=== PATIENT | female | born 1940 | race Caucasian/White ===

== ENCOUNTER → 2023-08-17 08:25 | Outpatient (REF) | payer MEDICARE, OTHER, SELFPAY ==
[2023-08-17 09:54] LABS: TSH Reflex To Free T4 3.79 uIU/ml (0.47-4.68)
== END ==
LOC: REG 08:25
PROVIDERS: ATTENDING PHYSICIAN Physician Assistant Medical; FAMILY PHYSICIAN Family Medicine
DX: E04.9 Nontoxic goiter, unspecified (principal); E89.0 Postprocedural hypothyroidism
CPT/HCPCS: 36415; 84443

== ENCOUNTER → 2023-10-24 08:53 | Outpatient (REF) | payer MEDICARE, OTHER, SELFPAY ==
[2023-10-24 10:37] LABS: % Basophils 0.9 % (0-2); % Immature Granulocytes 0.3 % (0-0.5); % Lymphocytes 37.9 % (20.5-51.1); % Monocytes 6.2 % (1.7-9.3); % Neutrophils 50.7 % (42.2-75.2); Absolute Basophils 0.1 10^3/uL (0-0.2); Absolute Eosinophils 0.2 10^3/uL (0-0.7); Absolute Lymphocytes 2.2 10^3/uL (1.2-3.4); Absolute Monocytes 0.4 10^3/uL (0.1-0.6); Absolute Neutrophils 2.9 10^3/uL (1.4-6.5); Hematocrit 40.8 % (37.0-47.0); Hemoglobin 13.2 g/dL (12.0-16.0); Mean Corp Hgb Conc. 32.4 g/dL (33.0-37.0); Mean Corpuscular Hgb 31.1 pg (27.0-31.0); Mean Platelet Volume 11.3 fL (7.4-10.4); Nucleated Red Blood Cells % 0 %; Platelet Count 185 10^3/uL (130-400); Red Blood Cell Count 4.25 10^6/uL (4.20-5.40); Red Cell Dist. Width 13.8 % (11.5-14.5); White Blood Cell Count 5.8 10^3/uL (4.8-10.8)
[2023-10-24 10:47] LABS: ALT (SGPT) 20 U/L (0-35); AST (SGOT) 38 U/L (14-36); Albumin 4.2 g/dl (3.5-5.0); Alkaline Phosphatase 51 U/L (38-126); Blood Urea Nitrogen 21 mg/dl (7-17); Calcium 9.5 mg/dl (8.4-10.2); Carbon Dioxide 26 mmol/L (22-30); Chloride 106 mmol/L (98-107); Glucose 102 mg/dl (70-99); Potassium 3.9 mmol/L (3.5-5.1); Sodium 139 mmol/L (135-145); Total Bilirubin 0.5 mg/dl (0.2-1.3); eGFR 41.31
== END ==
LOC: REG 08:53
PROVIDERS: ATTENDING PHYSICIAN Otolaryngology; FAMILY PHYSICIAN Family Medicine
DX: C73 Malignant neoplasm of thyroid gland (principal); Z01.818 Encounter for other preprocedural examination
CPT/HCPCS: 36415; 80053; 85025

== ENCOUNTER → 2023-12-11 07:43 | Outpatient (REF) | payer MEDICARE, OTHER, SELFPAY ==
[2023-12-11 08:58] LABS: Calcium 9.5 mg/dl (8.4-10.2)
[2023-12-11 09:26] LABS: TSH Reflex To Free T4 0.12 uIU/ml (0.47-4.68)
[2023-12-11 09:56] LABS: Free T4 1.46 ng/dl (0.78-2.19)
== END ==
LOC: REG 07:43
PROVIDERS: ATTENDING PHYSICIAN Physician Assistant Medical; FAMILY PHYSICIAN Family Medicine
DX: E89.0 Postprocedural hypothyroidism (principal); C73 Malignant neoplasm of thyroid gland; E03.9 Hypothyroidism, unspecified
CPT/HCPCS: 36415; 82310; 84439; 84443

== ENCOUNTER → 2024-03-26 13:38 | Outpatient (REF) | payer MEDICARE, OTHER, SELFPAY | LOC: RCS 13:38 | PROVIDERS: ATTENDING PHYSICIAN Internal Medicine; FAMILY PHYSICIAN Family Medicine | DX: I25.10 Atherosclerotic heart disease of native coronary artery without angina pectoris (principal); Z95.1 Presence of aortocoronary bypass graft; Z95.2 Presence of prosthetic heart valve; I21.3 ST elevation (STEMI) myocardial infarction of unspecified site; I50.32 Chronic diastolic (congestive) heart failure | CPT/HCPCS: 93306 ==

== ENCOUNTER 2024-08-13 07:48 | Inpatient (IN) | payer MEDICARE, OTHER, SELFPAY ==
[2024-07-31 13:50] VITALS: BMI 28.0
[2024-07-31 14:07] LABS: Hematocrit 42.9 % (37.0-47.0); Hemoglobin 13.9 g/dL (12.0-16.0); Mean Corp Hgb Conc. 32.4 g/dL (33.0-37.0); Mean Corpuscular Hgb 30.8 pg (27.0-31.0); Mean Corpuscular Volume 94.9 fL (81.0-99.0); Mean Platelet Volume 11.5 fL (7.4-10.4); Platelet Count 159 10^3/uL (130-400); Red Blood Cell Count 4.52 10^6/uL (4.20-5.40); Red Cell Dist. Width 13.4 % (11.5-14.5); White Blood Cell Count 7.2 10^3/uL (4.8-10.8)
[2024-07-31 14:36] LABS: Glycohemoglobin (HgbA1c) 6.2 % (4.0-5.6)
[2024-07-31 15:00] LABS: ALT (SGPT) 28 U/L (0-35); AST (SGOT) 43 U/L (14-36); Albumin 4.6 g/dl (3.5-5.0); Alkaline Phosphatase 53 U/L (38-126); Blood Urea Nitrogen 23 mg/dl (7-17); Calcium 9.8 mg/dl (8.4-10.2); Carbon Dioxide 24 mmol/L (22-30); Chloride 103 mmol/L (98-107); Estimated Creatinine Clearance 29 ml/min; Glucose 100 mg/dl (70-99); Potassium 4.6 mmol/L (3.5-5.1); Sodium 139 mmol/L (135-145); Total Protein 7.5 g/dl (6.3-8.2); eGFR 37.56
[2024-08-07 13:16] VITALS: BMI 28.0
[2024-08-13] VITALS (13 sets, daily range): BP systolic 94–121; BP diastolic 55–73; PULSE 74–77; O2SAT 94; BMI 28.0
[2024-08-13] MEDS: TYLENOL 650 MG PO ×3 (08:31→20:16)
[2024-08-13] MEDS: NORMOSOL-R/PLASMALYTE-A 1000 IV ×2 (08:31→13:41)
[2024-08-13] MEDS: CELEBREX 200 MG PO (08:31)
--- NOTE | 2024-08-13 11:22 | W.PN.UPDATE ---
Update Note
Progress Note Update
L TKA 08/13/24
DVT ppx ASA
PAST MEDICAL HISTORY:
1. Osteoarthritis.
2. Obesity, BMI 29.63.
3. PVC's.
4. Hypertension.
5. Hyperlipidemia.
6. CAD, severe , s/p CABG x3, QUIROGA-LAD, SVG-D3 OM3, AVR
bovine 11/2017.
7. Ischemic cardiomyopathy, HFimpEF 55% by echo 03/2024.
8. Mitral regurgitation, [id number].
9. Mixed restrictive and obstructive pulmonary disease.
10. Remote tobacco abuse.
11. Hypothyroidism.
12. History of thyroid cancer.
13. Balance and gait disturbance with neuropathy.
14. CKD 3.
15. Venous insufficiency.
--- NOTE | 2024-08-13 11:34 | W.DS.TRANS ---
DC Summary - [employer]
-
Discharge Instructions:
Sleep Apnea Risk Low
Discharge Diagnosis/Procedures L TKA 08/13/24
Diet As tolerated
Activity With Walker
Driving Restrictions No driving
Bathing Restrictions OK to Shower
Other Services PT
Instructions:
Stand-Alone Forms: Total Hip/Knee Replacement D/C
Changes to Home Medications: Yes
Discharge Medications:
DC Medications w/original date entered in [facility]
aspirin 81 mg tablet,delayed release 81 mg PO DAILY 12/10/17
furosemide 40 mg tablet 40 mg PO DAILY ##30 12/10/17
potassium chloride 20 mEq tablet,extended release(part/cryst) (Klor-Con M) 20 meq PO DAILY ##30 12/10/17
amoxicillin 500 mg tablet 2,000 mg PO PRN PRN Pre Dental Procedure 07/29/24
coQ10 (ubiquinol) 100 mg capsule 300 mg PO DAILY 07/29/24
ezetimibe 10 mg tablet (Zetia) 10 mg PO QPM 07/29/24
inulin 2 gram chewable tablet (Fiber Gummies) 4 g PO DAILY 07/29/24
ipratropium bromide 18 mcg/actuation aerosol inhaler 2 puff inhalation DAILY 07/29/24
levothyroxine 88 mcg tablet 88 mcg PO DAILY 07/29/24
metoprolol succinate 25 mg tablet,extended release 24 hr 25 mg PO DAILY@1000 07/29/24
multivitamin 1 tab PO DAILY 07/29/24
rosuvastatin 40 mg tablet (Crestor) 40 mg PO QPM 07/29/24
dexamethasone 4 mg tablet 4 mg PO BID inflammation #6 tabs 07/31/24
gabapentin 300 mg capsule 300 mg PO HS sleep/pain #10 caps 07/31/24
mupirocin 2 % topical ointment 1 applic topical BID infection prevention #1 tube 07/31/24
ondansetron 4 mg disintegrating tablet 4 mg PO Q6H PRN n/v #20 tabs 07/31/24
oxycodone 5 mg tablet 5 mg PO Q6H PRN 1 tab moderate pain, 2 tabs severe pain #30 tabs 07/31/24
acetaminophen 500 mg tablet 1,000 mg (2 x 500 mg) PO QID #0 tabs 08/13/24
aspirin 325 mg tablet 325 mg PO DAILY blood clot prevention #1 tab 08/13/24
docusate sodium 100 mg capsule (Colace) 100 mg PO BID stool softner #1 cap 08/13/24
magnesium hydroxide 400 mg/5 mL oral suspension (Milk of Magnesia) 30 ml PO HS PRN Constipation #1 mL 08/13/24
sennosides 8.6 mg tablet (Senokot) 17.2 mg (2 x 8.6 mg) PO BID laxative #2 tabs 08/13/24
Home Medication Changes
dexamethasone 4 mg tablet 4 mg PO BID inflammation #6 tabs 07/31/24
gabapentin 300 mg capsule 300 mg PO HS sleep/pain #10 caps 07/31/24
mupirocin 2 % topical ointment 1 applic topical BID infection prevention #1 tube 07/31/24
ondansetron 4 mg disintegrating tablet 4 mg PO Q6H PRN n/v #20 tabs 07/31/24
oxycodone 5 mg tablet 5 mg PO Q6H PRN 1 tab moderate pain, 2 tabs severe pain #30 tabs 07/31/24
acetaminophen 500 mg tablet 1,000 mg (2 x 500 mg) PO QID #0 tabs 08/13/24
aspirin 325 mg tablet 325 mg PO DAILY blood clot prevention #1 tab 08/13/24
docusate sodium 100 mg capsule (Colace) 100 mg PO BID stool softner #1 cap 08/13/24
magnesium hydroxide 400 mg/5 mL oral suspension (Milk of Magnesia) 30 ml PO HS PRN Constipation #1 mL 08/13/24
sennosides 8.6 mg tablet (Senokot) 17.2 mg (2 x 8.6 mg) PO BID laxative #2 tabs 08/13/24
Pending Results: No
[2024-08-13] MEDS: ROXICODONE 5 MG PO (11:41)
[2024-08-13] MEDS: TYLENOL PO (13:41)
[2024-08-13] MEDS: SYNTHROID PO (13:41)
--- NOTE | 2024-08-13 14:06 | PTCARENOTE ---
Pt arrived to 2S in bed. Full assessment completed. IVF infusing per order. Telemetry applied. L knee primaseal with a small amount of drainage noted, Tj wrap maintained. LLE with decreased movement and sensation, neurovascular assessment
otherwise WDL. Nasal cannula maintained. Pt educated to ring for assistance getting OOB, verbalized understanding. Bed locked and in the lowest position, safety maintained. Oriented to room and call huynh, daughter at bedside.
[2024-08-13] MEDS: ANCEF 5 IV (17:13)
[2024-08-13] MEDS: CRESTOR 40 MG PO (17:14)
[2024-08-13] MEDS: ASPIRIN 325 MG PO (17:14)
[2024-08-13] MEDS: ZETIA 10 MG PO (17:14)
[2024-08-13] MEDS: SENOKOT 17.2 MG PO (20:16)
[2024-08-13] MEDS: ULTRAM 25 MG PO (20:16)
[2024-08-13] MEDS: COLACE 100 MG PO (20:16)
[2024-08-13] MEDS: DECADRON 4 MG IV (20:16)
[2024-08-13] MEDS: BACTROBAN 2% OINTMENT 1 APPLIC NASAL (21:46)
[2024-08-13] MEDS: NEURONTIN 300 MG PO (21:46)
[2024-08-14] MEDS: TYLENOL 650 MG PO ×4 (00:22→13:49)
[2024-08-14] MEDS: ANCEF 5 IV (02:20)
[2024-08-14 03:30] VITALS: BP 94/50
[2024-08-14] MEDS: TYLENOL PO (04:11)
[2024-08-14] MEDS: SYNTHROID 88 MCG PO (06:03)
[2024-08-14 07:45] VITALS: BP 119/67
[2024-08-14] MEDS: ATROVENT NEBULES 0.5 MG INH (07:47)
[2024-08-14] MEDS: SENOKOT 17.2 MG PO (08:25)
[2024-08-14] MEDS: ASPIRIN 325 MG PO (08:25)
[2024-08-14] MEDS: COLACE 100 MG PO (08:26)
[2024-08-14] MEDS: BACTROBAN 2% OINTMENT 1 APPLIC NASAL (08:26)
[2024-08-14] MEDS: DECADRON 4 MG IV (08:26)
[2024-08-14] MEDS: ULTRAM 25 MG PO (08:28)
--- NOTE | 2024-08-14 09:54 | W.PN.ORTHO ---
Today's Communication / Plan
-
d/c
Assessment
.
Distal Motor Intact: Yes
Dressing:
Clean, dry and intact.
Assessment:
PVC's.
Hypertension.
Hyperlipidemia.
CAD, severe , s/p CABG x3, QUIROGA-LAD, SVG-D3 OM3, AVR bovine 11/2017.
Ischemic cardiomyopathy, HFimpEF 55% by echo 03/2024.
Mitral regurgitation, [id number].
--tele and volume status stable
Mixed restrictive and obstructive pulmonary disease.
Remote tobacco abuse.
-O2 sat stable on RA
Balance and gait disturbance with neuropathy.
-stable with PT/OT
CKD 3.-no nephrotoxic agents
Venous insufficiency-patient has SCD device for home use.
Plan
.
Surgery / Date: L TKA 08/13/24
DVT Prophylaxis: Aspirin
Activity:
Out of bed.
PT/OT
Discharge Plan: Home w/ VN
Subjective
.
.:
Patient resting comfortably.
Vital Signs and Labs
.
Vital Signs and Labs:
Lab Results
07/31/24 12:56
07/31/24 12:56
Temp Pulse Resp BP Pulse Ox
97.7 F 78 16 119/67 93
08/14/24 07:45 08/14/24 07:54 08/14/24 07:54 08/14/24 07:45 08/14/24 07:54
Non-invasive Hgb result: 15.2
Physical Exam
-
HEENT: No pallor, cyanosis, or jaundice. Throat clear.
NECK: Supple. No JVD.
RESPIRATORY: Lungs clear to auscultation.
CVS: S1, S2 normal. RRR.� No murmur, rub or gallop.
ABDOMEN: Soft, non-tender. No distension. BS+/normal.
EXTREMITIES: strength equal, no calf pain with palpation
MANAGER EMPLOYEE RELATIONS: AOx3. No focal deficits. child development specialist grossly intact
--- NOTE | 2024-08-14 10:01 | CM ---
Reviewed the chart notes and spoke with the patient and her daughter at the bedside. The patient resides alone in a two story home with two steps to enter and one step down to family room, bedroom and full bath. The patient has a rolling walker,
shower chair, raised toilet seat, cane, and anti-dvt compression sleeves. The patient has had VN in the past and been to [facility]. Discussed VN agencies in the area, VN was selected and a referral was sent in [facility]. Patient's
daughter to transport home today. CM continues to be available to patient/family and is monitoring medical plan for needs at discharge.
Plan: Discharge to home with VN/PT/OT services.
[2024-08-14 11:47] VITALS: BP 95/53; PULSE 63; O2SAT 94
[2024-08-14 12:20] VITALS: BP 107/58
[2024-08-14] MEDS: TOPROL XL 12.5 MG PO (13:48)
[2024-08-14] MEDS: ProAmatine 5 MG PO (13:49)
== END 2024-08-14 14:39 | disposition home health service (06) | DRG 470 ==
LOC: 2 SOUTH 07:48
PROVIDERS: ADMITTING PHYSICIAN Orthopaedic Surgery; FAMILY PHYSICIAN Family Medicine; REFERRING PHYSICIAN Internal Medicine
PROC: 0SRD069 Replacement of Left Knee Joint with Oxidized Zirconium on Polyethylene Synthetic Substitute, Cemented, Open Approach (ICD-10-PCS; 2024-08-13)
DX: M17.12 Unilateral primary osteoarthritis, left knee (principal); I13.0 Hypertensive heart and chronic kidney disease with heart failure and stage 1 through stage 4 chronic kidney disease, or unspecified chronic kidney disease; I50.32 Chronic diastolic (congestive) heart failure; N18.30 Chronic kidney disease, stage 3 unspecified; I87.2 Venous insufficiency (chronic) (peripheral); Z87.891 Personal history of nicotine dependence; G62.9 Polyneuropathy, unspecified; I25.10 Atherosclerotic heart disease of native coronary artery without angina pectoris; I25.5 Ischemic cardiomyopathy; I34.0 Nonrheumatic mitral (valve) insufficiency; I49.3 Ventricular premature depolarization
CPT/HCPCS: 36415; 73560; 80053; 83036; 85027; 87070; 94640; 97110; 97116; 97162; 97166; 97535; C1713; C1776

== ENCOUNTER → 2024-12-09 08:32 | Outpatient (REF) | payer MEDICARE, OTHER, SELFPAY | LOC: RCS 08:32 | PROVIDERS: ATTENDING PHYSICIAN Internal Medicine Cardiovascular Disease; FAMILY PHYSICIAN Family Medicine; REFERRING PHYSICIAN Internal Medicine | DX: I25.5 Ischemic cardiomyopathy (principal) | CPT/HCPCS: 93225; 93226 ==

== ENCOUNTER → 2024-12-26 08:25 | Outpatient (REF) | payer MEDICARE, OTHER, SELFPAY ==
[2024-12-26 12:25] LABS: TSH Reflex To Free T4 0.65 uIU/ml (0.47-4.68)
[2024-12-26 13:50] LABS: ALT (SGPT) 19 U/L (0-35); AST (SGOT) 33 U/L (14-36); Albumin 4.2 g/dl (3.5-5.0); Alkaline Phosphatase 45 U/L (38-126); Blood Urea Nitrogen 32 mg/dl (7-17); Calcium 9.7 mg/dl (8.4-10.2); Carbon Dioxide 25 mmol/L (22-30); Chloride 110 mmol/L (98-107); Glucose 97 mg/dl (70-99); HDL Cholesterol 65 mg/dl; LDL Cholesterol, Calculated 45 mg/dl; Potassium 4.6 mmol/L (3.5-5.1); Sodium 143 mmol/L (135-145); Total Bilirubin 0.6 mg/dl (0.2-1.3); Total Cholesterol 130 mg/dl (50-199); Total Protein 6.9 g/dl (6.3-8.2); Triglyceride 102 mg/dl (10-149); Very Low Density Lipoprotein 20 mg/dl (0-30); eGFR 37.56
[2024-12-27 21:46] LABS: Thyroglobulin <0.1 ng/mL (1.3-31.8); Thyroglobulin Antibodies <1.5 IU/mL (0.0-4.0)
== END ==
LOC: REG 08:25
PROVIDERS: ATTENDING PHYSICIAN Internal Medicine Endocrinology, Diabetes & Metabolism; FAMILY PHYSICIAN Family Medicine; REFERRING PHYSICIAN Internal Medicine
DX: I25.10 Atherosclerotic heart disease of native coronary artery without angina pectoris (principal); E78.5 Hyperlipidemia, unspecified; C73 Malignant neoplasm of thyroid gland
CPT/HCPCS: 36415; 80053; 80061; 84432; 84443; 86800

== ENCOUNTER → 2025-01-06 13:32 | Outpatient (REF) | payer MEDICARE, OTHER, SELFPAY | LOC: RCS 13:32 | PROVIDERS: ATTENDING PHYSICIAN Internal Medicine; FAMILY PHYSICIAN Family Medicine | DX: I25.10 Atherosclerotic heart disease of native coronary artery without angina pectoris (principal); I34.0 Nonrheumatic mitral (valve) insufficiency; I36.1 Nonrheumatic tricuspid (valve) insufficiency; I49.3 Ventricular premature depolarization; I25.5 Ischemic cardiomyopathy | CPT/HCPCS: 93306 ==

== ENCOUNTER → 2025-04-22 09:10 | Outpatient (REF) | payer MEDICARE, OTHER, SELFPAY | LOC: RCS 09:10 | PROVIDERS: ATTENDING PHYSICIAN Internal Medicine; FAMILY PHYSICIAN Family Medicine | DX: I25.10 Atherosclerotic heart disease of native coronary artery without angina pectoris (principal); Z95.2 Presence of prosthetic heart valve; I25.5 Ischemic cardiomyopathy | CPT/HCPCS: 93306 ==